=== PATIENT | female | born 1985 | race Caucasian/White ===

== ENCOUNTER 2018-04-09 09:09 | Outpatient (CLI) | payer BC, SELFPAY ==
[2018-04-10 10:41] LABS: Hepatitis C Ab w Rflx HCV PCR Negative (NEGAT)
[2018-04-10 11:20] LABS: HIV-1/2 Ag & Ab Screen Negative (NEGAT)
== END 2018-04-09 09:29 ==
PROVIDERS: PCP Family Medicine; Visit Provider Family Medicine
DX: Z20.2 Contact with and (suspected) exposure to infections with a predominantly sexual mode of transmission (principal); Z72.51 High risk heterosexual behavior
CPT/HCPCS: 36415; 86803; 87389

== ENCOUNTER 2018-04-09 10:00 | Outpatient (REF) | payer BC, SELFPAY ==
[2018-04-10 15:27] LABS: Chlamydia Result Negative; GC Result Negative
== END 2018-04-09 10:20 ==
LOC: LBN 10:00
PROVIDERS: PCP Family Medicine; Visit Provider Family Medicine
DX: Z20.2 Contact with and (suspected) exposure to infections with a predominantly sexual mode of transmission (principal); Z72.51 High risk heterosexual behavior; Z11.3 Encounter for screening for infections with a predominantly sexual mode of transmission
CPT/HCPCS: 87491; 87591; 87480; 87510; 87660

== ENCOUNTER 2018-04-15 11:40 | Outpatient (CLI) | payer BC, SELFPAY ==
[2018-04-15 12:51] LABS: Abs Immature Grans 0.03 k/cumm (0.0-0.09); Absolute Basophil Count 0.04 k/cumm (0.0-0.2); Absolute Lymphocyte Count 3.39 k/cumm (1.2-3.4); Basophils % 0.3; Eosinophils % 1.9; HCT 42.8 % (36.0-46.0); HGB 14.1 g/dL (12.0-15.5); Immature Grans % 0.2; Lymphocytes % 26.2; Mean Corp. HGB Concentration 32.9 g/dL (32.0-36.0); Mean Corpuscular Hemoglobin 32.6 pg (27.0-33.0); Mean Corpuscular Volume 99.1 fL (80-95); Mean Platelet Volume 10.2 fL (8.0-11.0); Neutrophils % 63.4; Platelet Count 255 x1000/uL (130-400); RBC 4.32 m/cumm (4.00-5.20); RBC Distribution Width 12.9 % (11.7-14.6); White Blood Cell Count 12.92 k/cumm (4.4-10.8)
[2018-04-15 12:53] LABS: Absolute Eosinophil Count 0.25 k/cumm (0.0-0.7); Absolute Monocyte Count 1.03 k/cumm (0.11-0.7); Absolute Neutrophil Count 8.19 k/cumm (1.2-6.7)
[2018-04-15 12:59] LABS: ESR 7 MM/HR (0-20)
[2018-04-15 14:15] LABS: HCG Qual (Serum) Negative
== END 2018-04-15 12:00 ==
PROVIDERS: PCP Family Medicine; Visit Provider Counselor Mental Health
DX: R10.2 Pelvic and perineal pain (principal); N93.8 Other specified abnormal uterine and vaginal bleeding
CPT/HCPCS: 36415; 85652; 84703; 85025

== ENCOUNTER 2018-04-19 00:17 | Outpatient (CLI) | payer BC, SELFPAY ==
--- NOTE | 2018-04-19 09:00 | DI.US_ITS ---
SYMPTOM/DIAGNOSIS: LLQ PAIN, VAGINAL BLEEDING, ABD PAIN ABDOMINAL ULTRASOUND: 04/19/18 The visualized liver parenchyma is normal in appearance. There is no evidence of cholelithiasis. The common bile duct is of normal diameter. The pancreas and spleen appear intact. No renal abnormality is seen. The abdominal aorta is of normal diameter. Normal appearance of IVC. CONCLUSION: Normal abdominal ultrasound. PELVIC ULTRASOUND: 04/19/18 Pelvic ultrasound was performed transabdominally and transvaginally. Please see the accompanying data sheet for measurements of the pelvic structures. There appears to be bicornuate uterus. Endometrial stripe is mildly heterogeneous and about 19 mm in thickness. There may be a small lower uterine segment fibroid measuring about 15 mm in greatest diameter. There are multiple small Nabothian cysts. No significant cul de sac fluid seen. There is a 21 mm in diameter mixed echogenicity predominantly cystic right ovarian mass which is likely to represent a hemorrhagic cyst. There is also an apparent corpus luteum on the left. CONCLUSION: Probable bicornuate uterus. Presumed hemorrhagic cyst on the right, a follow up ultrasound is suggested in 4-6 weeks to document the resolution of these findings and exclude underlying neoplasm.
== END 2018-04-19 00:37 ==
PROVIDERS: PCP Family Medicine; Visit Provider Family Medicine
DX: R10.32 Left lower quadrant pain (principal); N93.9 Abnormal uterine and vaginal bleeding, unspecified; D25.9 Leiomyoma of uterus, unspecified; N88.8 Other specified noninflammatory disorders of cervix uteri; N83.11 Corpus luteum cyst of right ovary; N83.292 Other ovarian cyst, left side
CPT/HCPCS: 76700; 76830; 76856

== ENCOUNTER 2020-11-09 18:31 | Outpatient (REF) | payer BC, SELFPAY ==
[2020-11-10 14:24] LABS: COVID-19 RT-PCR UVMMC Result Negative (Negative)
== END 2020-11-09 18:32 | disposition home or self-care (01) ==
LOC: LBN 18:31
PROVIDERS: PCP Family Medicine; Visit Provider Family Medicine
DX: J02.9 Acute pharyngitis, unspecified (principal); R06.02 Shortness of breath; R50.9 Fever, unspecified; Z20.822 Contact with and (suspected) exposure to COVID-19
CPT/HCPCS: U0003; 87070

== ENCOUNTER 2022-05-11 10:55 | Outpatient (REF) | payer MEDICAID, SELFPAY ==
[2022-05-11 14:28] LABS: *AMPHETAMINES SCREEN URINE Negative (Negative); *BARBITURATES SCREEN URINE Negative (Negative); *BENZODIAZEPINES SCREEN URINE Negative (Negative); Cannabinoids THC Negative (Negative); Cocaine Screen,Urine Negative (Negative); METHADONE URINE SCREEN Negative (Negative); OPIATES URINE SCREEN Negative (Negative)
[2022-05-11 14:29] LABS: Tricyclic Antidepressants Negative (Negative)
== END 2022-05-11 10:56 | disposition home or self-care (01) ==
LOC: LBN 10:55
PROVIDERS: PCP Family Medicine; Visit Provider Family Medicine
DX: F98.8 Other specified behavioral and emotional disorders with onset usually occurring in childhood and adolescence (principal); F90.0 Attention-deficit hyperactivity disorder, predominantly inattentive type
CPT/HCPCS: 80307

== ENCOUNTER 2022-10-24 12:08 | Outpatient (REF) | payer MEDICAID, SELFPAY ==
--- NOTE | 2022-10-24 11:30 | PAPFT_PTH ---
PATIENT: Dina Fontaine LOC: [facility] #:[id number] AGE/SX: 37/F ROOM: RE10/24/[address]: Nguyen Younger MD, DC : 1985 BED: DIS: 10/24/2022 SPEC #: [id number] RECD: 10/25/22 13:01 STATUS: VIKIYoko REKenan #: [id number] ELIZABETH: 10/24/22 11:[address]: Nguyen Younger DEPT: [facility] Cytology RECD BY: Ines Sanchez Tissues: 1 - CX/ENDOCX FOR PAP SMEARS Procedures: PAP THIN PREP/UVM Screening HPV DNA PROBE Comments: [id number] (CHLAMYDIA/GC)
[2022-10-26 14:37] LABS: Chlamydia Result Negative (Negative); GC Result Negative (Negative)
== END 2022-10-24 12:09 | disposition home or self-care (01) ==
LOC: LBN 12:08
PROVIDERS: PCP Family Medicine; Visit Provider Family Medicine
DX: Z12.4 Encounter for screening for malignant neoplasm of cervix (principal); Z11.3 Encounter for screening for infections with a predominantly sexual mode of transmission
CPT/HCPCS: 87491; 87591; 88142; 87624

== ENCOUNTER 2023-05-07 20:04 | Outpatient (REF) | payer MEDICAID, SELFPAY ==
[2023-05-07 22:22] LABS: *AMPHETAMINES SCREEN URINE Negative (Negative); *BARBITURATES SCREEN URINE Negative (Negative); *BENZODIAZEPINES SCREEN URINE Negative (Negative); Cannabinoids THC Positive (Negative); Cocaine Screen,Urine Negative (Negative); METHADONE URINE SCREEN Negative (Negative); OPIATES URINE SCREEN Negative (Negative)
[2023-05-07 22:23] LABS: Tricyclic Antidepressants Negative (Negative)
[2023-05-08 09:15] LABS: Lab Add On Test DONE
[2023-05-14 11:47] LABS: Amphetamine 25 ng/mL (Cutoff: 25); Amphetamines Interpretation Positive.; MDA (Ecstasy Metabolite) Negative ng/mL (Cutoff: 25); MDMA (Ecstasy) Negative ng/mL (Cutoff: 25); Methamphetamine Negative ng/mL (Cutoff: 25); Phentermine Negative ng/mL (Cutoff: 25); Pseudoephedrine/Ephedrine Present ng/mL (Cutoff: 25)
== END 2023-05-07 20:05 | disposition home or self-care (01) ==
LOC: LBN 20:04
PROVIDERS: PCP Family Medicine; Visit Provider Family Medicine
DX: F98.8 Other specified behavioral and emotional disorders with onset usually occurring in childhood and adolescence (principal); R82.5 Elevated urine levels of drugs, medicaments and biological substances
CPT/HCPCS: 80307; 80324

== ENCOUNTER 2024-07-21 20:32 | Outpatient (REF) | payer MEDICAID, SELFPAY ==
[2024-07-21 22:00] LABS: *AMPHETAMINES SCREEN URINE Positive (Negative); *BARBITURATES SCREEN URINE Negative (Negative); *BENZODIAZEPINES SCREEN URINE Negative (Negative); Cannabinoids THC Positive (Negative); Cocaine Screen,Urine Negative (Negative); METHADONE URINE SCREEN Negative (Negative); OPIATES URINE SCREEN Negative (Negative)
[2024-07-21 22:01] LABS: Tricyclic Antidepressants Negative (Negative)
== END 2024-07-21 20:33 | disposition home or self-care (01) ==
LOC: LBN 20:32
PROVIDERS: PCP Family Medicine; Visit Provider Family Medicine
DX: F98.8 Other specified behavioral and emotional disorders with onset usually occurring in childhood and adolescence (principal); Z79.899 Other long term (current) drug therapy
CPT/HCPCS: 80307